=== PATIENT | female | born 1995 | race Hispanic/Latino ===

== ENCOUNTER 2018-03-31 16:06 | Emergency (ER) | payer OTHER ==
[~2018-03-31] VITALS: Ht 160 cm; Wt 54.5 kg
[~2018-03-31 16:06] MED LIST: AMOXICILLIN500 MG PO; AZITHROMYCIN250 MG PO; BACITRACIN500 MG/GM OD; BACTRIM DS1 TAB PO; CIPROFLOXACN500 MG PO; CITALOPRAM10 MG PO; DIFLUCAN150 MG PO; ERYTHROMYCIN BAS1 GM OD; ERYTHROMYCIN O3.5 GM OP; KEFLEX500 MG PO; OMEPRAZOLE20 MG PO; PRILOSEC20 MG PO; SPRINTEC 2828 DAY OR
[2018-03-31 16:55] VITALS: BP 120/80
== END 2018-03-31 16:57 | disposition home or self-care (01) | DRG 951 ==
LOC: ED 16:06
DX: Z20.811 Contact with and (suspected) exposure to meningococcus (principal); Y99.0 Civilian activity done for income or pay

== ENCOUNTER 2023-03-19 13:13 | Observation (INO) | payer BC ==
[~2023-03-19] VITALS: Ht 160 cm; Wt 66.6 kg
[2023-03-19] VITALS (8 sets, daily range): BP systolic 91–120; BP diastolic 48–74
[2023-03-19 13:40] LABS: URINE BILIRUBIN - DIPSTICK Negative (NEGATIVE); URINE BLOOD DIPSTICK Moderate (NEGATIVE); URINE GLUCOSE - DIPSTICK Negative (NEGATIVE); URINE KETONE Negative (NEGATIVE); URINE LEUK ESTERASE Trace (NEGATIVE); URINE NITRITE - DIPSTICK Negative (Negative); URINE PROTEIN - DIPSTICK Negative (NEG-TRACE); URINE UROBILINOGEN - DIPSTICK 0.2 E.U./dL (0.2)
[2023-03-19 13:43] LABS: URINE COLOR Yellow
[2023-03-19 13:45] LABS: BASO% 0.1 % (0-3); EOS% 1.5 % (0-8); HEMATOCRIT 36.8 % (37.0-47.0); HEMOGLOBIN 12.5 g/dl (12.0-16.0); IMMATURE GRANULOCYTES 0.1 % (0.0-5.0); LYMPH% 43.9 % (15-41); MEAN CORPUSCULAR HGB 30.5 pG CALC (26.0-32.0); MONO% 6.2 % (2-13); NEUT# 4.09 thou/uL (2.00-7.15); NEUT% 48.2 % (42-76); RED BLOOD COUNT 4.1 mill/uL (4.20-5.60); RED CELL DISTRI WIDTH 12.1 % (11.5-15.5)
[2023-03-19 13:46] LABS: MEAN CELL VOLUME 89.8 fL CALC (80.0-100.0)
[2023-03-19 13:57] LABS: ALBUMIN 3.8 g/dL (3.2-5.0); ALKALINE PHOSPHATASE 143 u/l (38-126); ANION GAP 10 (6-22 (CALC)); BILIRUBIN, TOTAL 0.5 mg/dL (0.02-1.3); BUN 14 mg/dL (7-17); BUN/CREATININE RATIO 18 (12-20 (CALC)); CARBON DIOXIDE 25 mmol/l (22-30); CHLORIDE 107 mmol/l (95-108); CREATININE 0.8 mg/dL (0.5-1.0); GFR FOR AFR.AMER. > 60 ML/MIN (>=60 (CALC)); GFR OTHER RACES > 60 ML/MIN (>=60 (CALC)); LIPASE 351 u/l (23-300); POTASSIUM 3.3 mmol/l (3.5-5.1); SGOT/AST 93 u/l (14-36); SODIUM 139 mmol/l (137-146); TOTAL PROTEIN 7.4 g/dL (6.3-8.2)
[2023-03-19 13:57] LABS: URINE RBC 0-2 RBC/hpf (0-5); URINE SQUAMOUS EPITHELIAL CELL MODERATE EPI/hpf (0-FEW); URINE WBC 0-2 WBC/hpf (0-5)
--- NOTE | 2023-03-19 14:04 | NUR ---
pt in room, no apparent distress bedside
--- NOTE | 2023-03-19 15:00 | NUR ---
ULTRASOUND COMPLETED IN ROOM
--- NOTE | 2023-03-19 15:47 | NUR ---
REPORT CALLED UP AND GIVEN TO NURSE DENIS. PT IS ADMITTED TO ROOM 264
--- NOTE | 2023-03-19 16:04 | NUR ---
pt transported to room for admission
--- NOTE | 2023-03-19 16:35 | NUR ---
PT RESTING IN HIGH FOWLERS POSITION . PT A/OX3 AMBULATORY. HEART RHYTHM NORM RESPIRATIONS ON ROOM AIR. IV SITE NOTED ADJUSTED PER PT REQUEST.PT IS REQUESTING FOOD . PT EDUCATED ON CLEAR LIQUID DIET AND WILL BE NPO AFTER MIDNIGHT PT DENIES ADDITIONAL NEEDS AT THE TIME ALL SAFETY PRECAUTIONS IN PLACE WITH CALL LIGHT IN REACH.
--- NOTE | 2023-03-19 17:36 | NUR ---
PT REQUESTED TO STAY NIGHT.TECHNICAL COMMUNICATION TEACHER CALLED AND APPROVED PT NOTIFIED. PT DENIES ADDITIONAL NEEDS AT THE TIME ALL SAFETY PRECAUTIONS IN PLACE WITH CALL LIGHT IN REACH.
--- NOTE | 2023-03-19 20:00 | NUR ---
RECEIVED REPORT FROM NURSE JW DENIS ALERT ORIENTED ABLE TO MAKE NEEDS KNONW, IV ON LAV G 20 STATED DISCOMFORT ON IV SITE CHANGED TO G20 ON RAC WITH D5 1/2 NS WITH 20 MEQ AT 125CC/HR INFUSING WELL PATIENT ON CLEAR LIQUID DIET AND EDUCATED TO BE NPO AFTER MIDNIGHT, NADIA ESQUIVEL APPLIED TO PATIENT, C/O HEADACHE MEDICATED, CALL LIGHT IN REACH.
--- NOTE | 2023-03-19 21:00 | NUR ---
PATIENT WANTED TO SPEAK WITH SURGEON PRIOR TO SIGNING CONSENT.
--- NOTE | 2023-03-20 | NUR ---
DUE TORADOL GIVEN, PS 0/10, PATIENT NOW NPO, FLUIDS REMOVED.
--- NOTE | 2023-03-20 04:00 | NUR ---
PATIENT REMAINS ON NPO, PATIENT DENIES PAIN AT THIS TIME, CALL LIGHT IN REACH.
[2023-03-20 04:34] VITALS: BP 97/56
--- NOTE | 2023-03-20 06:58 | NUR ---
PT RESTING IN LOWFOWLERSPOSITION PT A/OX3 PT HEART RHYTHM NORM. RESPIRATIONS ON ROOM AIR. PTDENIES PAIN AT THE TIME.EDUCATED PT NO TIME FRAME FOR OR AT THE TIME.PT STATED UNDERSTANDING. PT DENIES ADDITIONAL NEEDS AT THE TIME ALL SAFETY PRECAUTIONS IN PLACE WITH CALL LIGHT IN REACH.
[2023-03-20 07:44] VITALS: BP 92/52
--- NOTE | 2023-03-20 11:03 | NUR ---
PT TAKEN TO OR PREP FOR SURGERY WITH OR STAFF.
--- NOTE | 2023-03-20 12:37 | NUR ---
PT STILL IN OR.
[2023-03-20] MEDS ORDERED: PERCOCET 5/325M1 TAB PO (13:41)
--- NOTE | 2023-03-20 16:24 | NUR ---
PT ARRIVED TO NV FROM OR VIA STRETCHER. PT A/O C/O PAIN PT MEDICATED PER EMAR FOR PAIN. PT VOIDED FELT NAUSEAS WHEN AMBULATED ZOFRAN PROVIDED PER EMAR. PT DENIES ADDITIONAL NEEDS AT THE TIME. PT AWARE NEED OF TOLERATION ON DIET FOR DC.
--- NOTE | 2023-03-20 19:25 | NUR ---
PT UN ABLE TO TOLERATE DIET . PT TO STAY NIGHT PT REQUEST TO ALTERNATE PAIN MEDICATIONS . NIGHT NURSE AWARE PT DENIES ADDITIONAL NEEDS AT THE TIME ALL SAFETY PRECAUTIONS IN PLACE.
[2023-03-20 19:46] VITALS: BP 103/69
--- NOTE | 2023-03-20 20:00 | NUR ---
RECEIVED REPORT FROM NURSE ADEEL, PATIENT ALERT ORIENTED S/P LAP KELSEY, INCISION CDI WITH DERMABOND, IV ON RAC G 20 D5 1/2 NS WITH 20 MEQ POTASSIUM, PATIENT PLACED ON SCD, PATIENT C/O NAUSEA AND BLOATING WILL MEDICATE, CALL LIGHT IN REACH.
--- NOTE | 2023-03-21 | NUR ---
PATIENT STIIL FEELING NASEOUS, PRN PHENERGAN GIVEN AND DUE TORADOL GIVEN.
--- NOTE | 2023-03-21 03:33 | NUR ---
DUE ZOSYN GIVEN PATINET RESTING IN BED, NOT IN DISTRESS, IN ROOM CALL LIGHT IN REACH.
[2023-03-21 03:35] VITALS: BP 87/54
[2023-03-21 05:11] VITALS: BP 94/53
[2023-03-21 05:12] VITALS: BP 94/53
--- NOTE | 2023-03-21 07:00 | NUR ---
RECEIVED BEDSIDE REPORT FROM PM RN. PT IS LYING IN BED WITH EYES CLOSED. ALL SAFETY MEASURES IN PLACE. VSS. NO NEEDS AT THIS TIME.
[2023-03-21 07:15] VITALS: BP 92/47
[2023-03-21 12:08] VITALS: BP 101/52
--- NOTE | 2023-03-21 12:08 | NUR ---
PT UP AND AMBULATING IN ROOM. WILL BE DISCHARGED AFTER LUNCH. PT AND MD AGREEABLE TO THIS PLAN.
--- NOTE | 2023-03-21 13:04 | NUR ---
Discharge instructions given. Patient verbalizes understanding of same. Discharged in stable condition via Wheelchair to Home with spouse. All belongings sent with pt. IV catheter removed intact. Pt education given.
== END 2023-03-21 13:00 | disposition home or self-care (01) | DRG 417 ==
LOC: ED 13:13 → ED-I 14:30 → ED 14:50 → MS2 14:51
PROVIDERS: Nurse Practitioner; ADMIT Surgery; ATTEND Surgery
PROC: 0FT44ZZ Resection of Gallbladder, Percutaneous Endoscopic Approach (ICD-10-PCS; principal; 2023-03-20)
PROC: BF00YZZ Plain Radiography of Bile Ducts using Other Contrast (ICD-10-PCS; 2023-03-20)
DX: K80.10 Calculus of gallbladder with chronic cholecystitis without obstruction (principal); K85.10 Biliary acute pancreatitis without necrosis or infection; K82.1 Hydrops of gallbladder; Z20.822 Contact with and (suspected) exposure to COVID-19
CPT/HCPCS: G0378; J1610; Q9966; S0164

== ENCOUNTER 2023-07-16 08:21 | Emergency (ER) | payer BC ==
[~2023-07-16] VITALS: Ht 160 cm; Wt 69.3 kg
[~2023-07-16 08:21] MED LIST changes: +PERCOCET 5/325M1 TAB PO
[2023-07-16 08:41] VITALS: BP 118/80
[2023-07-16 09:00] LABS: BASO% 0.1 % (0-3); EOS% 0.4 % (0-8); HEMATOCRIT 38.4 % (37.0-47.0); HEMOGLOBIN 13.4 g/dl (12.0-16.0); IMMATURE GRANULOCYTES 0.1 % (0.0-5.0); LYMPH% 15.2 % (15-41); MEAN CELL VOLUME 87.7 fL CALC (80.0-100.0); MEAN CORPUSCULAR HGB 30.6 pG CALC (26.0-32.0); MEAN CORPUSCULAR HGB CONC 34.9 g/dL CAL (32.0-36.0); MONO% 4.5 % (2-13); NEUT# 10.65 thou/uL (2.00-7.15); NEUT% 79.7 % (42-76); RED BLOOD COUNT 4.38 mill/uL (4.20-5.60)
[2023-07-16 09:06] VITALS: BP 113/67
[2023-07-16 09:20] LABS: ALBUMIN 4.4 g/dL (3.2-5.0); ALKALINE PHOSPHATASE 107 u/l (38-126); ANION GAP 11 (6-22 (CALC)); BILIRUBIN, TOTAL 0.5 mg/dL (0.02-1.3); BUN 12 mg/dL (7-17); BUN/CREATININE RATIO 16 (12-20 (CALC)); CARBON DIOXIDE 25 mmol/l (22-30); CHLORIDE 107 mmol/l (95-108); CREATININE 0.7 mg/dL (0.5-1.0); GFR FOR AFR.AMER. > 60 ML/MIN (>=60 (CALC)); GFR OTHER RACES > 60 ML/MIN (>=60 (CALC)); LIPASE 169 u/l (23-300); POTASSIUM 3.8 mmol/l (3.5-5.1); SGOT/AST 66 u/l (14-36); SODIUM 139 mmol/l (137-146); TOTAL PROTEIN 7.6 g/dL (6.3-8.2)
[2023-07-16 09:52] VITALS: BP 113/67
[2023-07-16 10:03] VITALS: BP 117/67
[2023-07-16 10:28] LABS: URINE BILIRUBIN - DIPSTICK Negative (NEGATIVE); URINE BLOOD DIPSTICK Trace-intact (NEGATIVE); URINE GLUCOSE - DIPSTICK Negative (NEGATIVE); URINE KETONE Negative (NEGATIVE); URINE LEUK ESTERASE Trace (NEGATIVE); URINE NITRITE - DIPSTICK Negative (Negative); URINE PH 6.5 (4.5-8.0); URINE PROTEIN - DIPSTICK Negative (NEG-TRACE); URINE UROBILINOGEN - DIPSTICK 0.2 E.U./dL (0.2)
[2023-07-16 10:30] VITALS: BP 111/68
[2023-07-16 10:33] LABS: URINE COLOR Yellow
[2023-07-16] MEDS ORDERED: PROTONIX40 M2 PO (10:52)
[2023-07-16 11:00] VITALS: BP 113/64
== END 2023-07-16 11:06 | disposition home or self-care (01) | DRG 392 ==
LOC: ED 08:21
PROVIDERS: Family Medicine
DX: R10.13 Epigastric pain (principal)
CPT/HCPCS: Q9967